=== PATIENT | female | born 2000 | race Caucasian/White ===

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

== ENCOUNTER 2020-07-20 10:52 | Emergency (ER) | payer OTHER ==
[~2020-07-20] VITALS: Ht 170.2 cm; Wt 68.9 kg
[2020-07-20] MEDS ORDERED: ASHLYNA 0.15-01 EACH PO (11:01)
[2020-07-20] MEDS ORDERED: CYCLOBENZAPRINE10 MG PO (11:53)
== END 2020-07-20 12:07 | disposition home or self-care (01) ==
LOC: ED 10:52
DX: S06.0X0A Concussion without loss of consciousness, initial encounter (principal); S16.1XXA Strain of muscle, fascia and tendon at neck level, initial encounter; V43.62XA Car passenger injured in collision with other type car in traffic accident, initial encounter; Z79.899 Other long term (current) drug therapy
CPT/HCPCS: 99283

== ENCOUNTER 2024-06-26 03:25 | Emergency (ER) | payer OTHER ==
[~2024-06-26] VITALS: Ht 170.2 cm; Wt 62.2 kg
[~2024-06-26 03:25] MED LIST changes: +ASHLYNA 0.15-01 EACH PO; +CYCLOBENZAPRINE10 MG PO
[2024-06-26] MEDS ORDERED: CITALOPRAM HBR40 MG PO (03:35)
[2024-06-26] MEDS ORDERED: DIPHTH,PERTUSS(ACELL),TET VAC 0.5 ML SYRINGE IM ONE (04:15)
[2024-06-26 04:40] VITALS: BP 119/87
== END 2024-06-26 04:40 | disposition home or self-care (01) ==
LOC: ED 03:25
DX: S62.346A Nondisplaced fracture of base of fifth metacarpal bone, right hand, initial encounter for closed fracture (principal); Z79.899 Other long term (current) drug therapy; W22.8XXA Striking against or struck by other objects, initial encounter
CPT/HCPCS: 73130; 90471; 90715; 99283-25

== ENCOUNTER 2024-10-04 04:35 | Emergency (ER) | payer OTHER ==
[~2024-10-04] VITALS: Ht 170.2 cm; Wt 62.6 kg
[~2024-10-04 04:35] MED LIST changes: +CITALOPRAM HBR40 MG PO
[2024-10-04] MEDS ORDERED: SODIUM CHLORIDE 0.9% 1,000 ML IV ONE (05:00)
[2024-10-04] MEDS ORDERED: MORPHINE SULFATE 4 MG/ML VIAL IV ONE (05:00)
[2024-10-04] MEDS ORDERED: ondansetron HCL 4 MG/2 ML VIAL IV ONE (05:00)
[2024-10-04 05:14] LABS: BILIRUBIN, URINE NEGATIVE (negative); BLOOD/HGB, URINE TRACE-I (Negative); KETONE, URINE NEGATIVE (Negative); LEUK ESTERASE, URINE NEGATIVE (negative); NITRITE, URINE NEGATIVE (negative); PH, URINE 6.5 (5-7)
[2024-10-04 05:19] LABS: EPITHELIAL CELLS, URINE SQUAMOUS 2+ /lpf (0-1+)
[2024-10-04 05:20] LABS: BACTERIA, URINE 1+ /hpf (negative); CASTS, URINE NONE SEEN \\lpf; COLLECTION TYPE, URINE CLEAN CATCH; CRYSTALS, URINE NONE SEEN (0-1+); REFLEX CULTURE, URINE No (No)
[2024-10-04 05:29] LABS: BASOPHILS 0.5 % (0-2); EOSINOPHILS 1.2 % (0-6); HEMATOCRIT 38.7 % (35.0-50.0); HEMOGLOBIN 13.3 g/dL (12.0-18.0); LYMPHOCYTES 44.5 % (24-44); MCH 35.1 (27-36); MCHC 34.4 g/dl (30-36); MCV 101.9 fl (81-99); MONOCYTES 6.7 % (0-12); NEUTROPHILS 47.1 % (39-80); PLATELET COUNT 258 K/uL (140-440)
[2024-10-04 05:48] LABS: ALBUMIN/GLOBULIN RATIO 1.54 (1.1-2.4); ANION GAP 12.7 (7-21); BILIRUBIN, TOTAL 0.5 ng/dL (0.2-1.0); BUN/CREATININE RATIO 5.94 (6.0-28.6); CALCIUM 9.2 mg/dL (8.5-10.1); CREATININE, SERUM 1.01 mg/dL (0.55-1.02); POTASSIUM 3.7 mmol/L (3.5-5.1); PROTEIN, TOTAL 6.6 g/dL (6.4-8.2)
[2024-10-04] MEDS ORDERED: DEPO-PROVE150 MG/11 IM (06:21)
[2024-10-04] MEDS ORDERED: ONDANSETRON ODT8 MG PO (06:48)
[2024-10-04] MEDS ORDERED: MACROBID 100 M100 MG PO (06:48)
[2024-10-04 07:11] VITALS: BP 120/65
== END 2024-10-04 07:11 | disposition home or self-care (01) ==
LOC: ED 04:35
PROVIDERS: Family Medicine
DX: N39.0 Urinary tract infection, site not specified (principal); K52.9 Noninfective gastroenteritis and colitis, unspecified; Z79.899 Other long term (current) drug therapy
CPT/HCPCS: 36415; 74177; 80053; 81001; 83690; 84703; 85025; 96361; 96375; 99284-25; J2270; J2405; J7030; Q9967

== ENCOUNTER 2025-06-17 22:01 | Emergency (ER) | payer OTHER ==
[~2025-06-17] VITALS: Ht 170.2 cm; Wt 63.0 kg
[~2025-06-17 22:01] MED LIST changes: +DEPO-PROVE150 MG/11 IM; +ONDANSETRON ODT8 MG PO
[2025-06-17] MEDS ORDERED: D3-200050 MCG PO (22:10)
[2025-06-17] MEDS ORDERED: CALCIUM 1,0001 EAC1 PO (22:11)
[2025-06-17] MEDS ORDERED: PAROXETINE HCL20 MG PO (22:11)
[2025-06-17 22:35] LABS: BASOPHILS 0.7 % (0.1-1.2); EOSINOPHILS 0.6 % (0.7-5.8); LYMPHOCYTES 40.9 % (19.3-51.7); MCH 35.6 PG (25.6-32.2); MCHC 35.9 g/dL (32.2-35.5); MCV 99.0 fL (79.4-94.8); MONOCYTES 6.5 % (4.7-12.5); NEUTROPHILS 51.1 % (34.0-71.1); RBC 3.88 M/uL (3.93-5.22)
[2025-06-17 22:54] LABS: ALCOHOL, MEDICAL 282 ng/dL (<3); ALT (SGPT) 46 U/L (14-59); AST (SGOT) 31 U/L (15-37); GLOMERULAR FILTRATION RATE,EST 102 mL/min (>60); PROTEIN, TOTAL 7.3 g/dL (6.4-8.2); TSH, 3RD GENERATION 1.764 uIU/mL (0.358-3.740); UREA NITROGEN 8 mg/dL (7-18)
[2025-06-17 23:11] LABS: BLOOD/HGB, URINE TRACE-I (Negative); KETONE, URINE NEGATIVE (Negative); LEUK ESTERASE, URINE NEGATIVE (negative); NITRITE, URINE NEGATIVE (negative)
[2025-06-17 23:18] LABS: EPITHELIAL CELLS, URINE SQUAMOUS 1+ /lpf (0-1+)
[2025-06-17 23:19] LABS: BACTERIA, URINE RARE /hpf (negative); CASTS, URINE NONE SEEN \\lpf; CRYSTALS, URINE NONE SEEN (0-1+); REFLEX CULTURE, URINE No (No)
[2025-06-17 23:26] LABS: AMPHETAMINES, URINE NEGATIVE (NEGATIVE); BARBITURATES, URINE NEGATIVE (NEGATIVE); BENZODIAZEPINE, URINE NEGATIVE (NEGATIVE); CANNABINOID, URINE NEGATIVE (NEGATIVE); COCAINE, URINE NEGATIVE (NEGATIVE); ECSTASY, URINE NEGATIVE (NEGATIVE); FENTANYL, URINE NEGATIVE (NEGATIVE); METHADONE, URINE NEGATIVE (NEGATIVE); OPIATES, URINE NEGATIVE (NEGATIVE); OXYCODONE, URINE NEGATIVE (NEGATIVE); PHENCYCLIDINE, URINE NEGATIVE (NEGATIVE)
[2025-06-18 03:32] VITALS: BP 125/83
--- NOTE | 2025-06-18 13:19 | EKG ---
[facility] [address] [facility] [place], [place] [address] Signed Sinus tachycardia Otherwise normal ECG No previous ECGs available Confirmed by JAH JOINER MD ([id number]) on 06/18/2025 1:18:52 PM Electronically Signed By: JAH JOINER 06/18/25 1319 PATIENT NAME: MINISTERIO JACOBO Electrocardiogram DATE OF : 00 PHYSICIAN: JAH JOINER REPORT #: [id number] REPORT IS CONFIDENTIAL AND NOT TO BE RELEASED WITHOUT AUTHORIZATION
== END 2025-06-18 03:34 | disposition home or self-care (01) ==
LOC: ED 22:01
PROVIDERS: Family Medicine
DX: T43.222A Poisoning by selective serotonin reuptake inhibitors, intentional self-harm, initial encounter (principal); T51.0X2A Toxic effect of ethanol, intentional self-harm, initial encounter; R00.0 Tachycardia, unspecified; R11.0 Nausea; F43.21 Adjustment disorder with depressed mood; Z79.899 Other long term (current) drug therapy
CPT/HCPCS: 36415; 80053; 80307; 81001; 83735; 84443; 84703; 85025; 93005; 93010; 99285; G0480